=== PATIENT | female | born 1980 | race Native Hawaiian/Other Pacific Islander ===

== ENCOUNTER → 2020-07-25 | Outpatient (CLI) | payer BC, OTHER ==
--- NOTE | 2020-07-26 06:11 | MR ---
EXAMINATION TYPE: MR pelvis wo/w con DATE OF EXAM: 07/25/2020 COMPARISON: None HISTORY: Issues with bladder function CONTRAST: Standard multiplanar, multisequence MRI departmental protocol utilizing 9 mL intravenous Gadavist britt olinium contrast. The bladder distends smoothly. I see no bladder wall thickening. The urethra is in normal position. T here is no evidence of a mass at the floor of the pelvis. There is hysterectomy noted. Vagina appears normal. The rectosigmoid colon appears normal. There is 1.7 cm cyst on the left ovary. Contrast imag es show no pathologic enhancement. There is no free fluid in the pelvis. The sacrum is intact. The visualized lumbosacral junction appea rs normal. IMPRESSION: There is hysterectomy. Negative MR scan of the pelvis. No evidence of bladder or urethra abnormality.
== END | disposition home or self-care (01) ==
LOC: RADMRIMAIN 17:16
PROVIDERS: ATTEND Urology
DX: N36.1 Urethral diverticulum (principal); Z90.710 Acquired absence of both cervix and uterus
CPT/HCPCS: 72197; A9585